=== PATIENT | female | born 1965 | race Two or more races ===

== ENCOUNTER 2019-01-22 08:16 | Outpatient (CLI) | payer OTHER | END 2019-01-22 08:24 | disposition home or self-care (01) | LOC: SONOGRAMA 08:16 | DX: E04.2 Nontoxic multinodular goiter (principal) ==

== ENCOUNTER 2023-08-22 09:11 | Outpatient (CLI) | payer OTHER | END 2023-08-22 09:20 | disposition home or self-care (01) | LOC: TOM 09:11 | PROVIDERS: ATTEND General Practice | DX: R22.1 Localized swelling, mass and lump, neck (principal) ==